=== PATIENT | male | born 1950 | race Caucasian/White ===

== ENCOUNTER 2021-07-21 02:51 | Day surgery (SDC) | payer MEDICARE, SELFPAY ==
[2021-07-09 12:33] VITALS: BMI 28.5
[2021-07-21] MEDS: ACETAMINOPHEN 500 MG TABLET 1000 MG PO (08:45)
--- NOTE | 2021-07-21 09:04 | WPDANESEPPF ---
Anes - Initial Pre Proc Eval Procedure: Operation Date: 07/21/21 10:30 Proposed Procedures p Right Inguinal Hernia Repair with Mesh - Nba Lamb MD Date/Time: 07/21/21 09:04 Surgeon: Nba Lamb MD Pre Op Diagnosis: right inguinal hernia Patient Data Age: 71 Gender: M Height: 1.8 m Weight: 92.72 kg Allergies Allergy/AdvReac Type Severity Reaction Status Date / Time aspirin Allergy Abdominal Verified 07/21/21 08:27 Pain Home Medications Medication Instructions Recorded Confirmed Type atorvastatin 10 mg tablet 5 mg PO HS 06/29/21 07/21/21 History calcium carbonate 600 mg calcium 600 mg PO DAILY 06/29/21 07/21/21 History (1,500 mg) tablet cholecalciferol (vitamin D3) 50 50 mcg PO DAILY 06/29/21 07/21/21 History mcg (2,000 unit) capsule fexofenadine 180 mg tablet 180 mg PO DAILY PRN 06/29/21 07/21/21 History lactobacillus combo no.11 15 1 cap PO DAILY 06/29/21 07/21/21 History billion cell sprinkle capsule metronidazole 0.75 % topical gel 1 applic TOPICAL DAILY 06/29/21 07/21/21 History omega-3 fatty acids-fish oil 360 2 cap PO DAILY 06/29/21 07/21/21 History mg-1,200 mg capsule venlafaxine 37.5 mg 37.5 mg PO QAM 06/29/21 07/21/21 History tablet,extended release 24 hr venlafaxine 75 mg tablet,extended 75 mg PO QAM 06/29/21 07/21/21 History release 24 hr vit B complex 100 combo no.2 100 1 tablet PO DAILY 06/29/21 07/21/21 History mg tablet,extended release loratadine 10 mg PO DAILY PRN 07/09/21 07/21/21 History magnesium 500 mg PO DAILY 07/09/21 07/21/21 History Patient hx anesthesia problems: none Family hx anesthesia problems: none Results Review: All pre-operative results and documents have been reviewed as part of the pre-operative evaluation. [facility] Past Medical History Medical History Kidney stones Surgical History Surgical History H/O left inguinal hernia repair H/O umbilical hernia repair Family History Family History Father Heart disease Mother Heart disease Cancer Unknown Diabetes mellitus Sibling Breast cancer Social History Social History Social History: caffeine use: 2 cups coffee daily Smoking packs per day: 1 Smoking cigarettes per day: 20.0 Years smoked: 30 Smoking pack-years: 30.00 Smoking status: Former smoker Tobacco type: cigarettes Additional smoking assessment comments: STATES QUITTING 1998 Alcohol intake: never Substance use: never Substance use type: does not use Living arrangements: with family Additional living arrangements comments: LIVES WITH SPOUSE - [place] Spiritual care concerns: No Anes - Eval Final PreProcedure Day of Procedure 07/21/21 09:04 Patient weight: overweight Heart: regular rate and rhythm Lungs: clear to auscultation Airway: Mallampati scale class II Neurological: alert and oriented Last oral intake: >/= 8 hours ASA classification: II Emergent: no Anesthetic plan: proceed Anesthesia type and monitoring: general GIVS and standard monitoring Results Review: All pre-operative results and documents have been reviewed as part of the pre-operative evaluation. Informed Consent: The patient's anesthetic plan and its attendant risks and benefits were discussed with the patient/family/POA. Questions were solicited and answers provided to the satisfaction of the patient/family/POA.
[2021-07-21] MEDS: LACTATED RINGERS 1,000 ML 30 ML IV CONT ×2 (09:05→12:05)
[2021-07-21] MEDS: KETOROLAC 15 MG/ML VIAL (*BKC) IV PUSH (09:10)
[2021-07-21 09:17] VITALS: BP 143/79; PULSE 75; TEMP 36.7; O2SAT 97
--- NOTE | 2021-07-21 10:27 | WPDHPUPDATE1 ---
History and Physical Update Update Date/Time: 07/21/21 10:27 History and Physical has been reviewed, including an updated exam of the patient. There are NO changes in the patient's condition. Risks, benefits, and alternatives have been discussed and questions answered. Patient agrees to proceed with procedure.
[2021-07-21] MEDS: ceFAZolin 2 GM/D5W 50 ML 2 GM/50 ML BAG IVPB (10:50)
--- NOTE | 2021-07-21 10:57 | W.PM.PROC2 ---
Procedure Note - Detailed Date of Procedure 07/21/21 Pre-op Diagnosis right inguinal hernia Post-op Diagnosis same Procedure Performed Right inguinal hernia repair with 6 cm Parietex hernia mesh system Surgeon Nba Lamb MD [employer] [place] SIMPSONA Anesthesia MAC and local (1% lidocaine with epinephrine) Indications Patient is a 71-year-old man who had noticed a bulge intermittently and pain in the right groin. His exam is difficult to determine the existence of a hernia but he did have a dynamic ultrasound which showed a right inguinal hernia possibly containing bowel. He is taken to surgery now for this reducible but symptomatic right inguinal hernia. Findings Showed an indirect right inguinal hernia Description of Procedure The patient was taken to surgery and IV sedation was introduced. The right groin and genitalia were prepped and draped. The proposed incision was marked on the skin. Local was infiltrated into the skin and the deeper subcutaneous tissues. Incision was made dissection was carried down through the subcutaneous. Crossing veins were cauterized and divided. We continued the dissection down through Дмитрий's fascia. The external oblique aponeurosis was exposed as was the external ring. Additional local was infiltrated deep to the external oblique aponeurosis in the area of the inguinal canal and spermatic cord. The aponeurosis was opened laterally and extended medially through the external ring. The leaves of the aponeurosis were carefully dissected free from the spermatic cord and inguinal canal contents. The ilioinguinal nerve was left attached to the cord and was uninjured throughout the surgery. The cord was mobilized medially on a [place] drain. The cord was then further dissected back to the internal ring mobilizing it fully. We then dissected in the anteromedial aspect of the cord. The hernia sac was found and was dissected free from the cord structures. Some lipomatous tissue of the cord was also dissected and excised. This was discarded. Hernia sac was dissected back to the internal ring and then dissected to a high dissection. It was dunked into the retroperitoneum. A 6 cm Parietex sioux was chosen and full deform a plug. It was placed in the defect and the edges were sutured to the transversalis fascia with interrupted 3 0 Vicryl suture. We then cut a patch to the appropriate size and laid over the inguinal canal floor. We then placed Xaracoll pieces over the patch on the inguinal canal floor. The cord and ileoinguinal nerve were then laid over the Xaracoll. We closed the external oblique aponeurosis over the cord. Xaracoll was then placed over the external oblique. We closed Дмитрий's fascia with interrupted 3-0 Vicryl suture. Xaracoll pieces were laid in the subcutaneous and then the skin was closed with interrupted 4 0 Vicryl subcuticular sutures followed by a running 4-0 Monocryl skin suture. Wound was dressed with Exofin surgical adhesive. Patient was awakened and taken to recovery in good condition. Sponge and needle counts were correct x2. Implants 6 cm Parietex hernia mesh system, Xaracoll bupivacaine infiltrated collagen Estimated Blood Loss 5 Drains No Packing No Pathology none sent Complications No immediate complications Condition stable Disposition same day
--- NOTE | 2021-07-21 11:29 | SUR.OPER ---
Xaracoll 100 mg per Implant Pouch x 3 implanted in right groin per Dr. Lamb.
[2021-07-21] MEDS: LIDO 1%/EPINEPHRINE 1:100,000 50 ML VIAL INFILTRATE (11:38)
[2021-07-21 12:05] VITALS: BP 94/55; PULSE 88; RESP 16; O2SAT 92
[2021-07-21 12:35] VITALS: BP 131/77; PULSE 76; RESP 16; O2SAT 96
[2021-07-21 13:05] VITALS: BP 133/75; PULSE 74; RESP 16
[2021-07-21 13:35] VITALS: BP 126/74; PULSE 80; RESP 16
[2021-07-21 14:00] VITALS: BP 129/71; PULSE 68; RESP 16
== END 2021-07-21 14:19 | disposition home or self-care (01) ==
PROVIDERS: PCP Pediatrics; Visit Provider Surgery
PROC: (CPT 49505; principal; 2021-07-21 10:30)
DX: K40.90 Unilateral inguinal hernia, without obstruction or gangrene, not specified as recurrent (principal); Z87.891 Personal history of nicotine dependence
CPT/HCPCS: 49505; A9270; C1781; J0690; J1100; J1170; J1885; J2250; J2405; J2704; J3010; J7120